=== PATIENT | female | born 1965 | race Caucasian/White ===

== ENCOUNTER 2022-04-17 20:02 | Emergency (ER) | payer OTHER ==
[~2022-04-17] VITALS: Ht 152.4 cm; Wt 72.6 kg
[2022-04-17] MEDS ORDERED: MORPHINE SULFATE 4 MG/1 ML DISP.SYRIN IM ONE (20:15)
[2022-04-17] MEDS ORDERED: MORPHINE SULFATE 4 MG/1 ML DISP.SYRIN ONE (20:23)
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
--- NOTE | 2022-04-17 20:51 | NUR ---
PT PLACED IN ROOM 4B.
[2022-04-17] MEDS ORDERED: PROPOFOL 200 MG/20 ML BOTTLE ONE (22:03)
[2022-04-17] MEDS ORDERED: KETAMINE HCL 500 MG/10 ML INJ ONE (22:03)
[2022-04-17] MEDS ORDERED: IV NORMAL SALINE 1000 ML BAG IV ONE (22:15)
[2022-04-17] MEDS ORDERED: KETAMINE HCL 500 MG/10 ML INJ IV ONE (22:15)
[2022-04-17] MEDS ORDERED: PROPOFOL 200 MG/20 ML BOTTLE IV ONE (22:15)
[2022-04-17 22:46] LABS: HEMATOCRIT 34.7 % (31.2-41.9); MEAN CORPUSCULAR HEMOGLOBIN 30.6 uug (24.7-32.8); MEAN CORPUSCULAR VOLUME 90.3 fL (75.5-95.3); PLATELET COUNT (AUTO) 249 K/uL (179-408)
--- NOTE | 2022-04-17 22:58 | NUR ---
RT ON STAND BY FOR CONSCIOUS SEDATIONS. PT ON N/C @ 2 LPM NOW AWAKE
--- NOTE | 2022-04-17 23:00 | NUR ---
Propofol only 5ml given per Dr. De La Rosa. Given via IV on left AC #20G
[2022-04-17 23:09] LABS: ALANINE AMINOTRANSFERASE 21 U/L (14-59); ALKALINE PHOSPHATASE 84 U/L (50-136); ASPARTATE AMINOTRANSFERASE 12 U/L (15-37); BILIRUBIN,DIRECT < 0.1 mg/dL (0.0-0.2); BILIRUBIN,TOTAL 0.3 mg/dL (0.2-1.0); CARBON DIOXIDE 28 mmol/L (21-32); CHLORIDE 110 mmol/L (98-107); GLUCOSE 115 mg/dL (74-106); POTASSIUM 3.9 mmol/L (3.5-5.1); TOTAL PROTEIN, SERUM 7.6 g/dL (6.4-8.2); UREA NITROGEN, BLOOD 20 mg/dL (7-18)
--- NOTE | 2022-04-17 23:39 | NUR ---
CALLED [facility] AGAIN WITH UPDATED VITALS, AWAITING CALL BACK FROM [facility] DOCTOR.
[2022-04-17] MEDS ORDERED: ONDANSETRON 4 MG/2 ML VIAL ONE (23:40)
--- NOTE | 2022-04-17 23:40 | NUR ---
Patient assisted to bedpan to urinate.
[2022-04-17] MEDS ORDERED: ONDANSETRON 4 MG/2 ML VIAL IV ONE (23:45)
[2022-04-18] MEDS ORDERED: FENTANYL CITRATE 100 MCG/2 ML AMPUL ONE (00:56)
[2022-04-18] MEDS ORDERED: FENTANYL CITRATE 100 MCG/2 ML AMPUL IV ONE (01:00)
--- NOTE | 2022-04-18 02:14 | NUR ---
Telephone call to [facility], spoke to Noelle to follow up regarding pt transfer. Per Noelle, they are still trying to get a hold of Romeo BALLARD from [facility].
[2022-04-18] MEDS ORDERED: KETAMINE HCL 500 MG/10 ML INJ IV ONE ×2 (02:15→03:30)
--- NOTE | 2022-04-18 05:53 | NUR ---
Dr De La Rosa on telephone call with Dr Medina from [facility]. Plan is to discharge patient at home and see [facility] ortho Dr Arvizu today.
--- NOTE | 2022-04-18 06:06 | NUR ---
Telephone call to [facility], Spoke to Jn and will get in touch with Dr Medina to speak to Dr. De La Rosa. Awaiting for return call.
--- NOTE | 2022-04-18 06:40 | NUR ---
Telephone call to [facility] again, spoke to Jn alves will try to get in touch with Dr Dobbins again.
--- NOTE | 2022-04-18 07:16 | NUR ---
Report given to Day shift BINH Churchill.
--- NOTE | 2022-04-18 07:54 | NUR ---
Pending [facility] transfer information, received patient sleeping, easily arousable, Ox4, calm & breathing easily, NAD.
--- NOTE | 2022-04-18 08:33 | NUR ---
Patient will transfer to outside facility: [facility] ER department Physician: Dr Rico Frideman Location: [facility] HR ASSOCIATE: brake liner Melissa [facility] arranged ambulance ETA: initially scheduled to arrive our hospital@830am but [facility] called back and said about 30 minutes more(approx 0900am instead)
--- NOTE | 2022-04-18 09:06 | NUR ---
[facility] ambulance unit#[id number] is here. SBAR given to airways control specialist Eliane/Chris and Reed.
== END 2022-04-18 09:21 | disposition short-term general hospital (02) ==
LOC: ER 20:05
DX: S82.392A Other fracture of lower end of left tibia, initial encounter for closed fracture (principal); S82.832A Other fracture of upper and lower end of left fibula, initial encounter for closed fracture; S80.212A Abrasion, left knee, initial encounter; V18.0XXA Pedal cycle driver injured in noncollision transport accident in nontraffic accident, initial encounter; Y93.55 Activity, bike riding; Y92.89 Other specified places as the place of occurrence of the external cause; S93.05XA Dislocation of left ankle joint, initial encounter; Z20.822 Contact with and (suspected) exposure to COVID-19
CPT/HCPCS: 27810; 36415; 73610 ×2; 80048; 80076; 85025; 87426; 93005; 96372; 96374; 96375 ×2; 96376; 99152; 99285; J2270; J2405; J3010; J3490; J7040; G0500